=== PATIENT | female | born 1945 | race Caucasian/White ===

== ENCOUNTER 2021-11-08 21:08 | Outpatient (CLI) | payer SELFPAY | END 2021-11-08 21:09 | disposition home or self-care (01) | LOC: AMB 11-22 11:15 | PROVIDERS: Visit Provider Internal Medicine | DX: R53.1 Weakness (principal) | CPT/HCPCS: A0998 ==

== ENCOUNTER 2023-05-22 02:43 | Outpatient (CLI) | payer MEDICARE, OTHER, SELFPAY | END 2023-05-22 02:44 | disposition home or self-care (01) | LOC: AMB 05-23 06:43 | PROVIDERS: Visit Provider Family Medicine | DX: R53.1 Weakness (principal) | CPT/HCPCS: A0998 ==